=== PATIENT | male | born 1975 | race Caucasian/White ===

== ENCOUNTER 2019-03-13 07:40 | Emergency (ER) | payer OTHER, SELFPAY ==
[2019-03-13 07:41] VITALS: BP 144/90; PULSE 87; RESP 18; TEMP 36.3; O2SAT 100; BMI 46.8
--- NOTE | 2019-03-13 08:13 | EKG12_ITS ---
Test Reason : CP/SOB Blood Pressure : / mmHG Vent. Rate : 072 BPM Atrial Rate : 072 BPM P-R Int : 146 ms QRS Dur : 086 ms QT Int : 386 ms P-R-T Axes : 012 028 032 degrees QTc Int : 422 ms Normal sinus rhythm Normal ECG Confirmed by LAURY JAUREGUI, MINNIE ([id number]), editor at large SHONDA MACHADO ([id number]) on 03/15/2019 10:24:30 A M Referred By: RAIMUNDO Confirmed By:NAY SCHAEFFER MD
--- NOTE | 2019-03-13 08:16 | ED.DCSUM_ITS ---
- ER Visit Summary Date of Service: 03/13/19 Chief Complaint: Lower sternal chest pain and cough History of Present Illness: The patient is a 43 M past week with a history of sleep apnea. He states since then he has had a nonproductive cough. He has been treatment with Mucinex. He is also had a hoarse voice. Monday he developed lower sternal chest pain which he thought was from coughing. He said sore to touch that area or to move. He denies any hemoptysis. He had no recent travel, surgery or immobilization. No recent hospitalization. No leg pain or swelling. He is never had a DVT or PE. He has no known cardiac history. Feels like it is difficult to catch his breath. Went to the urgent care who sent him to the ER for evaluation. Physical Examination: Middle-aged male. No acute distress. Vital signs are stable and afebrile. Blood pressure 144/90. Pulse ox 100% room air pulse 87. He is in no distress. H EENT exam unremarkable. Neck nontender no JVD. No lymphadenopathy. Lungs clear to auscultation bilaterally. Heart regular rate and rhythm no murmur. Rate about 80. Abdomen is soft and nontender normal bowel sounds no peritoneal signs. His lower sternum he has mild reproducible tenderness. There is no ecchymosis or bruising. No subcu air crepitance. No bony deformity. He is moving all 4 extremities. Calves are nontender without edema or cords. Neurologically is awake and alert with no focal motor deficits. Skin is unremarkable. Back is nontender. Lungs are clear posteriorly. Test Results: Chest x-ray 2 views shows no acute abnormality read both by myself and the radiologist. EKG sinus rhythm rate of 72 with no acute abnormality. No signs of ID or ischemia. CBC normal. Chemistries normal normal creatinine and gap. Troponin normal. Emergency Department Course and Treatment: Clinically I think this is a viral URI with muscle strain of his chest wall. Due to his age and his concerns I will put him through a cardiac work-up. He has no risk factors or physical findings for a DVT or PE. Repeat exam at 9:19 AM patient is doing well. I went over all his test results. He has reproducible chest wall pain. Treatment Plan: [id number] cough syrup. Ice to his chest wall. Tylenol and Motrin for pain and inflammation. Disposition: Discharge Impression: Viral URI with chest wall strain This note was generated with [employer] dictation software. It may contain incorrect words, spelling, and punctuation that were not noted in review of the chart prior to signing
--- NOTE | 2019-03-13 08:34 | RAD_ITS ---
STUDY: X-RAY CHEST REASON FOR EXAM: Male, 43 years old. Chest pain and cough. TECHNIQUE: PA and lateral views of the chest. COMPARISON: None. FINDINGS: EKG electrodes are seen. The lungs are clear and expanded. There is no demonstrated pleural abnormality. There is borderline cardiomegaly. Normal mediastinum and sherry. Normal visualized pulmonary arteries. Normal visualized aortic arch and descending thoracic aorta. Normal visualized thoracic spine. Normal visualized ribs, clavicles, and shoulders. There is no demonstrated abnormality of the visualized soft tissue structures of the upper abdomen. RAD/Chest PA and Lateral IMPRESSION: Borderline cardiomegaly. Electronically Signed: Prashant Wesley, at 8:57 EDT , Service support ,
[2019-03-13 08:36] LABS: Absolute Lymphocyte Count 2.16 X10^3/uL (0.83-4.51); Absolute Neutrophil Count 4.4 X10^3/uL (2.0-7.7); Basophil# 0.04 X10^3/uL; Basophil% 0.6 % (0-1); Eosinophils% 1.4 % (0-5); Hematocrit 43.8 % (40-54); Hemoglobin 15.1 g/dL (13.0-16.5); Lymphocyte # 2.16 X10^3/ul (4.0); Lymphocyte % 29.8 % (19-41); Mean Corp Hgb Conc 34.5 g/dL (32-36); Mean Corpuscular Hgb 30.9 pg (27.0-32.0); Mean Corpuscular Volume 89.6 fL (80-94); Monocyte# 0.54 X10^3/uL; Monocyte% 7.5 % (0-10); NRBC Flagged by Analyzer 0 % (0-5); Neutrophil # 4.37 X10^3/uL (2.7-7.7); Neutrophil % 60.3 % (47-70); Platelet Count 244 K/mm3 (150-450); RBC Distribution Width CV 12.5 % (11.6-14.6); RBC Distribution Width SD 41.1 fl (35.1-43.9); Red Blood Count 4.89 M/mm3 (4.6-6.2); White Blood Count 7.2 K/mm3 (4.4-11.0)
[2019-03-13 08:52] LABS: Anion Gap 8 (5-15); BUN 15 mg/dL (7-18); Calcium,Total 9.1 mg/dL (8.5-10.1); Chloride 107 mmol/L (98-107); Creatinine, Serum 1.07 mg/dL (0.70-1.30); EST Glomerular Filtration Rate 79 mL/min (>60); Est Glom Filt Rate - Afr Amer 96 mL/min (>60); Estimated Creatinine Clearance 81.51 ml/min; Glucose 113 mg/dL (74-106); Potassium 3.8 mmol/L (3.5-5.1); Sodium Level 143 mmol/L (136-145)
--- NOTE | 2019-03-13 09:22 | ED.DEP ---
ED Disposition - Plan for ED Patient: Disposition: Home or Assisted Living Instructions: BRONCHITIS, No Antibiotic (Adult), Chest Wall Strain Referrals: Marah Cerrato [Primary Care Provider] - 1 Week if not improving Additional Instructions: Return if feeling worse. Your chest x-ray and labs today and EKG were all normal. Ice to chest wall. Tylenol and Motrin for pain and inflammation. Follow-up with your doctor if not improving or return if worse
[2019-03-13 09:27] VITALS: BP 144/91; PULSE 74; RESP 19; O2SAT 97
== END 2019-03-13 09:36 | disposition home or self-care (01) ==
PROVIDERS: Emergency Provider Emergency Medicine; Family Provider Family Medicine; PCP Family Medicine
DX: J06.9 Acute upper respiratory infection, unspecified (principal); S29.011A Strain of muscle and tendon of front wall of thorax, initial encounter; G47.30 Sleep apnea, unspecified; X58.XXXA Exposure to other specified factors, initial encounter; Y93.9 Activity, unspecified; Y92.89 Other specified places as the place of occurrence of the external cause; Y99.9 Unspecified external cause status
CPT/HCPCS: 71046; 80048; 84484; 85025; 93005; 99284; A4216